=== PATIENT | male | born 1975 | race Caucasian/White ===

== ENCOUNTER 2018-03-21 17:41 | Emergency (ER) | payer BC ==
[2018-03-21 18:27] VITALS: BP 117/77
--- NOTE | 2018-03-21 18:41 | UC ---
Hip/Pelvis Pain - HPI Summary HPI Summary: Patient fell on the ice. Has no complaints of pain with walking, sitting or standing but his left leg is weak and giving out when he bends over. describes the pain with bending as shooting. no deformity noted, zaria internal or external rotation of the hip noted - History Of Current Complaint Chief Complaint: UCLowerExtremity Stated Complaint: FALL, LEFT HIP CONCERN Time Seen by Provider: 03/21/18 18:29 Hx Obtained From: Patient Onset/Duration: Sudden Onset, Lasting Hours Timing: Intermittent Episodes Lasting: Severity Initially: Mild Pain Intensity: 0 Character Of Pain: Sharp, Spasmodic Aggravating Factor(s): Movement Alleviating Factor(s): Nothing Associated Signs And Symptoms: Positive: Weakness, Knee Pain - Allergies/Home Medications Allergies/Adverse Reactions: Allergies Allergy/AdvReac Type Severity Reaction Status Date / Time Penicillins Allergy Unknown Unknown Verified 03/21/18 18:21 Reaction Details Home Medications: Home Medications NK [No Home Medications Reported] 03/21/18 [History Confirmed 03/21/18] PMH/Surg Hx/FS Hx/Imm Hx Previously Healthy: Yes - Surgical History Surgical History: Yes Surgery Procedure, Year, and Place: NECK SURGERY 2008 - Family History Known Family History: Positive: Hypertension - Social History Alcohol Use: Daily Substance Use Type: None Smoking Status (MU): Heavy Every Day Tobacco Smoker Type: Cigarettes Amount Used/How Often: 1 & 1/2 PPD Have You Smoked in the Last Year: Yes Household Exposure Type: Cigarettes - Immunization History Most Recent Influenza Vaccination: never Most Recent Tetanus Shot: UNKNOWN Review of Systems All Other Systems Reviewed And Are Negative: Yes Constitutional: Positive: Negative Skin: Positive: Negative Eyes: Positive: Negative ENT: Positive: Negative Respiratory: Positive: Negative Cardiovascular: Positive: Negative Gastrointestinal: Positive: Negative Genitourinary: Positive: Negative Motor: Positive: Negative Neurovascular: Positive: Negative Musculoskeletal: Positive: Myalgia Neurological: Positive: Weakness Psychological: Positive: Negative Is Patient Immunocompromised?: No Physical Exam Triage Information Reviewed: Yes Appearance: Well-Appearing, Well-Nourished, Pain Distress Vital Signs: Initial Vital Signs Temp 98.1 F 03/21/18 18:22 Pulse 75 03/21/18 18:22 Resp 17 03/21/18 18:22 BP 117/77 03/21/18 18:22 Pulse Ox 99 03/21/18 18:22 Vital Signs Reviewed: Yes Eye Exam: Normal ENT Exam: Normal Dental Exam: Normal Neck exam: Normal Respiratory Exam: Normal Cardiovascular Exam: Normal Abdominal Exam: Normal Musculoskeletal: Positive: No Edema, Strength Limited @ - in left leg with RROM iof ext, ROM Limited @ - with hip flexion and knee extention due to sharp pain sensation Neurological Exam: Normal Psychological Exam: Normal Skin Exam: Normal Hip Injury Course/Dx - Course Course Of Treatment: hx obtained, exam performed ,meds reviewed, xray obtained, no final read available, no obvious fracture or deformity noted. treated for hip contusion. Educated on use of ice and heat, NSAIDS and stretching. - Differential Dx/Diagnosis Differential Diagnosis/HQI/PQRI: Contusion, Dislocation, Fracture, Sciatica, Sprain, Strain Provider Diagnosis: Contusion of left hip Discharge - Sign-Out/Discharge Documenting (check all that apply): Patient Departure All imaging exams completed and their final reports reviewed: No - Discharge Plan Condition: Stable Disposition: HOME Patient Education Materials: Hip Contusion (ED) Referrals: No Primary Care Phys,NOPCP [Primary Care Provider] - John Hull MD [Medical Doctor] - Additional Instructions: 1. Ice today 2. Tomorrow start the heat and stretching, Expect to be stiff tomorrow morning. 3. Stretch the hip frequently along with use of heat 4. If not improving in 4-05 days follow up with the orthopedist. - Billing Disposition and Condition Condition: STABLE Disposition: Home
--- NOTE | 2018-03-22 08:01 | ED ---
Progress - Progress Note Progress Note: final xray reading negative Course/Dx - Course Course Of Treatment: hx obtained, exam performed ,meds reviewed, xray obtained, no final read available, no obvious fracture or deformity noted. treated for hip contusion. Educated on use of ice and heat, NSAIDS and stretching. - Diagnoses Provider Diagnoses: Contusion of left hip Discharge - Sign-Out/Discharge Documenting (check all that apply): Patient Departure All imaging exams completed and their final reports reviewed: Yes - Discharge Plan Condition: Stable Disposition: HOME Patient Education Materials: Hip Contusion (ED) Forms: *Work Release Referrals: John Hull MD [Medical Doctor] - No Primary Care Phys,NOPCP [Primary Care Provider] - Additional Instructions: 1. Ice today 2. Tomorrow start the heat and stretching, Expect to be stiff tomorrow morning. 3. Stretch the hip frequently along with use of heat 4. If not improving in 4-05 days follow up with the orthopedist. - Billing Disposition and Condition Condition: STABLE Disposition: Home
== END 2018-03-21 19:21 | disposition home or self-care (01) ==
LOC: UCCORT 17:41
DX: S70.02XA Contusion of left hip, initial encounter (principal); W00.0XXA Fall on same level due to ice and snow, initial encounter; Y92.9 Unspecified place or not applicable; Z88.0 Allergy status to penicillin; F17.210 Nicotine dependence, cigarettes, uncomplicated
CPT/HCPCS: 99201; G0463

== ENCOUNTER 2020-07-26 08:15 | Observation (INO) ==
[~2020-07-26 08:15] MED LIST: Buffered Lidocaine 1% SYRIN 1 ml INTRADERM ONE; Lactated Ringers 1000 ml BAG 1,000 ML IV SCH; Vancomycin 1,000 MG - ED ONCE IVPB ONE
[2020-07-26] MEDS ORDERED: Rocuronium 50 mg VIAL 10 mg/ml 5 ml VIAL (50 mg) ONE ×2 (08:41→11:39)
[2020-07-26] MEDS ORDERED: Midazolam 2 mg/2 ml VIAL 1 mg/ml 2 ml VIAL (2 mg) ONE (08:42)
[2020-07-26] MEDS ORDERED: fentaNYL 250 mcg/5 ml 50 MCG/ML 5 ml VIAL (250 MCG) ONE (08:42)
[2020-07-26] MEDS ORDERED: Albuterol/Ipratropium NEB.SOL (2.5/0.5 MG) 3 ML NEB.SOLN ONE (08:45)
[2020-07-26] MEDS ORDERED: Lidocaine 2% PF 5 ML VIAL ONE (08:46)
[2020-07-26] MEDS ORDERED: Propofol 10 MG/ML 20 ML BTL ONE (08:46)
[2020-07-26] MEDS ORDERED: Levalbuterol 1.25MG/0.5ML NEB.SOL INH ONE (08:47)
[2020-07-26] MEDS ORDERED: Levalbuterol 1.25MG/0.5ML NEB.SOL ONE (08:48)
[2020-07-26] MEDS ORDERED: Bacitracin INJECTION 50,000 UNITS ONE (09:37)
[2020-07-26] MEDS ORDERED: Metoprolol Tartrate 5 mg VIAL 5 ml VIAL (1 mg/ml) ONE (10:25)
[2020-07-26] MEDS ORDERED: Ondansetron 4 mg VIAL 2 MG/ML 2 ml VIAL ONE (10:40)
[2020-07-26] MEDS ORDERED: Dexamethasone IV 4 MG/ML VIAL 1 ml VIAL ONE (10:40)
[2020-07-26] MEDS ORDERED: fentaNYL 100 mcg/2 ml 50 MCG/ML VIAL IV PRN (11:18)
[2020-07-26] MEDS ORDERED: Naloxone 0.4 mg VIAL 0.4 mg/ml 1 ml VIAL IV PRN (11:18)
[2020-07-26] MEDS ORDERED: DiMENhydriNATE IV 50 mg/ml 1 ml VIAL IV PUSH PRN (11:18)
[2020-07-26] MEDS ORDERED: HYDROcodone/ACETAMIN 5/325 mg TAB PO PRN ×2 (12:28)
[2020-07-26] MEDS ORDERED: Ondansetron 4 mg VIAL 2 MG/ML 2 ml VIAL IV PRN (12:28)
[2020-07-26 16:09] VITALS: BP 132/80
== END 2020-07-26 19:30 | disposition home or self-care (01) ==
LOC: OR 08:15 → SSU 08:15
PROVIDERS: ADMIT Neurological Surgery; ATTEND Neurological Surgery

== ENCOUNTER 2020-12-07 12:32 | Inpatient (IN) ==
[2020-12-07 14:36] LABS: ABS Eosinophils 0.1 10^3/ul (0-0.6); ABS Lymphocytes 1.5 10^3/ul (1.0-4.8); ABS Monocytes 0.4 10^3/ul (0-0.8); ABS Neutrophils 4.5 10^3/ul (1.5-7.7); Eosinophil % 1.6 %; Hematocrit 42 % (42-52); Hemoglobin 14.5 g/dL (14.0-18.0); Lymphocyte % 23.5 %; Mean Corpuscular HGB Conc 34 g/dL (31-36); Mean Corpuscular Hemoglobin 33 pg (27-31); Mean Corpuscular Volume 97 fL (80-94); Mean Platelet Volume 7.7 fL (7.4-10.4); Platelet Count 243 10^3/uL (150-450); Red Blood Count 4.37 10^6 /uL (4.18-5.48); Red Cell Distribution Width 14 % (10-15); White Blood Count 6.6 10^3/uL (3.5-10.8)
[2020-12-07 15:02] LABS: C Reactive Protein 1.67 mg/L (<8.01); Calcium 9.9 mg/dL (8.6-10.3); EGFR African American 115.8 (>60); EGFR Non-African American 95.7 (>60); Potassium 3.8 mmol/L (3.5-5.0)
[2020-12-07] MEDS ORDERED: Gadoteridol (CONTRAST) 279.3 MG/ML 10 ML IV ONE (19:45)
[2020-12-07] MEDS ORDERED: Dexamethasone IV 4 MG/ML VIAL 1 ml VIAL IV SLOW PU ONE (20:35)
[2020-12-07] MEDS ORDERED: fentaNYL 100 mcg/2 ml 50 MCG/ML VIAL IV SLOW PU ONE (20:36)
[2020-12-07] MEDS ORDERED: Ondansetron 4 mg VIAL 2 MG/ML 2 ml VIAL IV PRN (22:02)
[2020-12-07 22:47] LABS: Activated Partial Thrombo Time 28.1 seconds (26.0-38.0); INR 1.03 (0.86-1.15)
[2020-12-07 22:59] LABS: Rapid COVID-19 Molecular Undetected (Undetected)
[2020-12-08] MEDS: Dexamethasone IV 4 MG/ML VIAL 1 ml VIAL IV SLOW PU SCH ×4 (03:48→22:36)
[2020-12-08] MEDS: fentaNYL 100 mcg/2 ml 50 MCG/ML VIAL IV SLOW PU PRN (08:20)
[2020-12-08 21:11] LABS: Urine Appearance Clear; Urine Bilirubin Negative (Negative); Urine Blood 1+ (Negative); Urine Color Yellow; Urine Glucose 3+(>=500 mg/dL) (Negative); Urine Ketones Negative (Negative); Urine Nitrite Negative (Negative); Urine Protein Negative (Negative); Urine Specific Gravity 1.013 (1.002-1.030); Urine Urobilinogen Negative (Negative)
[2020-12-08 21:13] LABS: Urine Bacteria Absent (Absent); Urine Red Blood Cell Trace(0-2/hpf) (Absent); Urine White Blood Cell Trace(0-5/hpf) (Absent)
[2020-12-09] MEDS: Dexamethasone IV 4 MG/ML VIAL 1 ml VIAL IV SLOW PU SCH ×4 (04:05→22:17)
[2020-12-09] MEDS: fentaNYL 100 mcg/2 ml 50 MCG/ML VIAL IV SLOW PU PRN (08:43)
[2020-12-10] MEDS: Dexamethasone IV 4 MG/ML VIAL 1 ml VIAL IV SLOW PU SCH ×4 (04:49→23:03)
[2020-12-10] MEDS: fentaNYL 100 mcg/2 ml 50 MCG/ML VIAL IV SLOW PU PRN (05:06)
[2020-12-11] MEDS: Dexamethasone IV 4 MG/ML VIAL 1 ml VIAL IV SLOW PU SCH ×4 (03:51→21:57)
[2020-12-11] MEDS: HYDROcodone/ACET. 7.5/325 LIQ 15 ML UDC PO PRN ×3 (10:05→21:57)
[2020-12-12] MEDS: Dexamethasone IV 4 MG/ML VIAL 1 ml VIAL IV SLOW PU SCH ×4 (04:23→22:09)
[2020-12-12] MEDS: HYDROcodone/ACET. 7.5/325 LIQ 15 ML UDC PO PRN ×3 (08:01→23:27)
[2020-12-13] MEDS: Dexamethasone IV 4 MG/ML VIAL 1 ml VIAL IV SLOW PU SCH ×5 (04:32→23:02)
[2020-12-13] MEDS: HYDROcodone/ACET. 7.5/325 LIQ 15 ML UDC PO PRN (08:01)
[2020-12-13] MEDS ORDERED: Buffered Lidocaine 1% SYRIN 1 ml INTRADERM ONE (09:57)
[2020-12-13] MEDS ORDERED: Famotidine IV 10 MG/ML 2 ml VIAL (20 mg) IV ONE (09:57)
[2020-12-13] MEDS ORDERED: Lactated Ringers 1000 ml BAG 1,000 ML IV SCH (10:00)
[2020-12-13] MEDS ORDERED: Propofol 10 mg/ml 100 ML BTL 100 ML ONE ×2 (10:04→15:06)
[2020-12-13] MEDS ORDERED: Dexamethasone IV 4 MG/ML VIAL 1 ml VIAL ONE ×3 (10:48→14:56)
[2020-12-13] MEDS ORDERED: Famotidine IV 10 MG/ML 2 ml VIAL (20 mg) ONE (10:48)
[2020-12-13] MEDS ORDERED: ceFAZolin VIAL VIAL ONE (10:57)
[2020-12-13] MEDS ORDERED: Bupivacaine 0.25% SDV 30 ML ONE (10:57)
[2020-12-13] MEDS ORDERED: Ondansetron 4 mg VIAL 2 MG/ML 2 ml VIAL ONE (11:06)
[2020-12-13] MEDS ORDERED: HYDROmorphone 1 MG/1 ML SYRINGE ONE ×4 (11:06→19:09)
[2020-12-13] MEDS ORDERED: Phenylephrine IV 10 MG/ML 1 ml VIAL ONE (11:06)
[2020-12-13] MEDS ORDERED: Midazolam 5 mg/5 ml VIAL 1 mg/ml 5 ml VIAL (5 mg) ONE (11:06)
[2020-12-13] MEDS ORDERED: Lidocaine 2% PF 5 ML VIAL ONE (11:06)
[2020-12-13] MEDS ORDERED: Sodium Chloride 0.9% 10 ML ONE (11:06)
[2020-12-13] MEDS ORDERED: Remifentanil 2 MG VIAL ONE ×5 (11:06→16:12)
[2020-12-13] MEDS ORDERED: Propofol 10 MG/ML 20 ML BTL ONE ×2 (11:06→13:10)
[2020-12-13] MEDS ORDERED: Vancomycin 1,000 MG in NS 0.9% 250 ml 250 ML IVPB ONE (12:00)
[2020-12-13] MEDS ORDERED: Lidocaine 1% w EPI 1:200,000 SDV 30 ML VIAL ONE (12:10)
[2020-12-13] MEDS ORDERED: Ketamine HCL 50 mg/ml 10 ml VIAL (500 MG) ONE (12:11)
[2020-12-13] MEDS ORDERED: Rocuronium 50 mg VIAL 10 mg/ml 5 ml VIAL (50 mg) ONE (13:30)
[2020-12-13] MEDS ORDERED: Acetaminophen IV 1 GM/100ML 100 ML IV ONE (15:44)
[2020-12-13] MEDS ORDERED: fentaNYL 100 mcg/2 ml 50 MCG/ML VIAL ONE ×3 (16:12→16:58)
[2020-12-13] MEDS ORDERED: Midazolam 2 mg/2 ml VIAL 1 mg/ml 2 ml VIAL (2 mg) ONE ×2 (16:15→17:00)
[2020-12-13] MEDS ORDERED: Labetalol IV 5 MG/ML 20 ml VIAL ONE (16:28)
[2020-12-13] MEDS ORDERED: Ondansetron 4 mg VIAL 2 MG/ML 2 ml VIAL IV PRN ×2 (18:28→18:47)
[2020-12-13] MEDS ORDERED: Naloxone 0.4 mg VIAL 0.4 mg/ml 1 ml VIAL IV PRN (18:47)
[2020-12-13] MEDS ORDERED: DiMENhydriNATE IV 50 mg/ml 1 ml VIAL IV PUSH PRN (18:47)
[2020-12-13] MEDS ORDERED: HYDROmorphone 1 MG/1 ML SYRINGE IV PRN (18:47)
[2020-12-14] MEDS: Dexamethasone IV 4 MG/ML VIAL 1 ml VIAL IV SLOW PU SCH ×5 (04:17→22:01)
[2020-12-14 07:24] LABS: ABS Monocytes 0.9 10^3/ul (0-0.8); ABS Neutrophils 10.6 10^3/ul (1.5-7.7); Hematocrit 38 % (42-52); Hemoglobin 13.2 g/dL (14.0-18.0); Lymphocyte % 8.1 %; Mean Corpuscular HGB Conc 34 g/dL (31-36); Mean Corpuscular Hemoglobin 33 pg (27-31); Mean Corpuscular Volume 95 fL (80-94); Platelet Count 246 10^3/uL (150-450); Red Blood Count 4.01 10^6 /uL (4.18-5.48); Red Cell Distribution Width 13 % (10-15); White Blood Count 12.5 10^3/uL (3.5-10.8)
[2020-12-14 07:43] LABS: Calcium 8.8 mg/dL (8.6-10.3); Potassium 4.1 mmol/L (3.5-5.0)
[2020-12-14] MEDS ORDERED: HYDROcodone/ACETAMIN 5/325 mg TAB PO PRN (10:11)
[2020-12-14] MEDS: HYDROcodone/ACETAMIN 5/325 mg TAB PO PRN ×3 (10:48→21:13)
[2020-12-15] MEDS: HYDROcodone/ACETAMIN 5/325 mg TAB PO PRN ×4 (03:23→17:41)
[2020-12-15] MEDS: Dexamethasone IV 4 MG/ML VIAL 1 ml VIAL IV SLOW PU SCH ×2 (05:27→13:39)
[2020-12-15 09:29] LABS: ABS Lymphocytes 1.1 10^3/ul (1.0-4.8); ABS Monocytes 1.2 10^3/ul (0-0.8); ABS Neutrophils 11.7 10^3/ul (1.5-7.7); Eosinophil % 0.1 %; Hematocrit 38 % (42-52); Hemoglobin 13.1 g/dL (14.0-18.0); Lymphocyte % 7.5 %; Mean Corpuscular HGB Conc 34 g/dL (31-36); Mean Corpuscular Hemoglobin 33 pg (27-31); Mean Corpuscular Volume 95 fL (80-94); Mean Platelet Volume 7.8 fL (7.4-10.4); Platelet Count 246 10^3/uL (150-450); Red Blood Count 4.03 10^6 /uL (4.18-5.48); Red Cell Distribution Width 14 % (10-15)
[2020-12-15 16:04] VITALS: BP 144/94
== END 2020-12-15 17:50 | disposition home or self-care (01) | DRG 304 ==
LOC: ED 12:32 → SUATTDRO 23:50 → MEDTELE 23:50 → SSU 12-08 16:27
PROVIDERS: ADMIT Student in an Organized Health Care Education/Training Program; ATTEND Internal Medicine